=== PATIENT | female | born 1965 | race African-American/Black ===

== ENCOUNTER → 2017-11-14 | Outpatient (CLI) | payer OTHER ==
[~2017-11-14] MED LIST: IOHEXOL 240 MG/ML 50ML VIAL. PO ONE; IOHEXOL 300 MG/ML 100ML VIAL. IV ONE
--- NOTE | 2017-11-14 11:28 | RAD ---
CT ABD PELV W/ORAL IV CONTRAST Indication: LOWER ABDOMINAL PAIN.
IV OMNI 300 75 MLS AND PO OMNI 240 50 MLS Exposure: One or more of the following individualized dose reduction techniques were utilized for this examination: 1. Automated exposure control 2. Adjustment of the mA and/or kV according to patient size 3. Use of iterative reconstruction technique. Comparison: None are available. Contrast: Intravenous contrast was given. Oral contrast was given. FINDINGS: Lower thorax: Ill-defined opacity in the right lung base medially, compatible with mild atelectasis or infiltrate. Milder atelectasis left lung base. Liver: Unremarkable Spleen: Unremarkable Pancreas: Unremarkable Adrenals: No evidence of mass. Kidneys: Large low-density lesion of the left kidney, measures 6.2 cm, compatible with a cyst. Urinary tracts: No hydronephrosis. Gallbladder: No calcified stone Lymph nodes: No significant enlargement Vessels: * Aorta: Nonaneurysmal * Major aortic branches: Grossly patent. * Portal venous: Patent GI tract: Fecal appearance of the terminal ileum contents, can be associated with slow bowel transit or an incompetent ileocecal valve. There is no small bowel distention to suggest gross obstruction. Appendix is not clearly visualized. Reproductive organs: Calcification within the uterus is likely a fibroid. Urinary bladder: Unremarkable. Peritoneum: No evidence of pneumoperitoneum. No free fluid. Abdominal wall:Unremarkable Spine: Mild degenerative change. Bones: Primary osteoarthritis of both hips. IMPRESSION: 1. Small bowel fecalization at the terminal ileum, can be associated with delayed bowel transit. No evidence of small bowel distention to suggest a gross mechanical obstruction. 2. Left renal lesion compatible with a cyst. 3. Mild opacity in both lung bases, compatible with atelectasis. Atelectasis versus a small infiltrate in the right lower lobe. Electronically signed by: Gonzales Light MD (11/14/2017 11:25 AM) [id number]
== END | disposition home or self-care (01) ==
LOC: CT 07:23
PROVIDERS: ATTEND Internal Medicine
DX: R10.84 Generalized abdominal pain (principal); M16.0 Bilateral primary osteoarthritis of hip; M51.36 Other intervertebral disc degeneration, lumbar region; J98.11 Atelectasis; I10 Essential (primary) hypertension
CPT/HCPCS: 74177; Q9966; Q9967